=== PATIENT | male | born 1940 ===

== ENCOUNTER 2021-04-09 15:06 | Emergency (ER) | payer OTHER ==
[~2021-04-09] VITALS: Ht 188 cm; Wt 84.8 kg
[2021-04-09 16:36] LABS: Basophils # (auto) 0.1 10 ^3/uL (0-0.2); Basophils % (auto) 0.6 % (0.0-2.0); Eosinophils # (auto) 0.1 10 ^3/uL (0-0.8); Eosinophils % (auto) 0.6 % (0.0-7.0); Hematocrit 40.1 % (41.0-53.0); Hemoglobin 13.4 g/dL (13.5-17.5); Lymphocytes # (auto) 2.8 10 ^3/uL (0.4-5.4); Lymphocytes % (auto) 25.3 % (10.0-50.0); Mean Corpuscular Hemoglobin 32.3 pg (28.0-32.0); Mean Corpuscular Hgb Conc. 33.5 g/dL (32.0-36.0); Mean Corpuscular Volume 96.3 fL (80.0-100.0); Monocytes # (auto) 1.3 10 ^3/uL (0-1.3); Monocytes % (auto) 11.7 % (0.0-12.0); Neutrophils # (auto) 6.8 10 ^3/uL (1.6-8.6); Neutrophils % (auto) 61.8 % (37.0-80.0); Nucleated Red Blood Cells % 0.1 %; Red Blood Cells 4.16 10^6/uL (4.5-5.90); Red Cell Distribution Width 12.8 % (11.8-14.3)
[2021-04-09 16:52] LABS: Albumin 3.3 g/dL (3.4-5.0); Calcium 8.7 mg/dL (8.5-10.1); Potassium 3.4 mmol/L (3.5-5.1)
[2021-04-09 16:56] LABS: Bilirubin, Total 0.9 mg/dL (0.2-1.0); Total Protein 6.4 g/dL (6.4-8.2)
[2021-04-09] MEDS ORDERED: cefTRIAXone 1GM/50ML D5W 50 ML IV ONE (17:15)
[2021-04-09] MEDS ORDERED: TETANUS-DIPTH-ACEL PERTUSSIS 0.5ML SYR Tdap IM ONE (17:15)
[2021-04-09 17:58] LABS: BUN/Creatinine Ratio 21.4
[2021-04-09 18:53] VITALS: BP 125/85
== END 2021-04-09 19:04 | disposition short-term general hospital (02) ==
LOC: EDBD 15:06 → ER 15:15
DX: S61.511A Laceration without foreign body of right wrist, initial encounter (principal); I10 Essential (primary) hypertension; J45.909 Unspecified asthma, uncomplicated; W20.8XXA Other cause of strike by thrown, projected or falling object, initial encounter; Y93.89 Activity, other specified; Y92.89 Other specified places as the place of occurrence of the external cause; Y99.8 Other external cause status
CPT/HCPCS: 36415; 73090; 80053; 85025; 90471; 90715; 96365; 99285; J0696